=== PATIENT | female | born 1950 | race Caucasian/White ===

== ENCOUNTER → 2019-11-04 11:06 | Outpatient (BNVA) | payer MEDICARE, SELFPAY | PROVIDERS: Family Provider Family Medicine; PCP Family Medicine; Visit Provider Family Medicine | DX: E78.2 Mixed hyperlipidemia (principal); M1A.0790 Idiopathic chronic gout, unspecified ankle and foot, without tophus (tophi); I10 Essential (primary) hypertension; K21.9 Gastro-esophageal reflux disease without esophagitis | CPT/HCPCS: 80053; 80061; 84443; 84550; 85025 ==

== ENCOUNTER → 2019-11-12 09:13 | Outpatient (BNVA) | payer MEDICARE, SELFPAY | PROVIDERS: Family Provider Family Medicine; PCP Family Medicine; Visit Provider Family Medicine | DX: R73.09 Other abnormal glucose (principal) | CPT/HCPCS: 80048 ==

== ENCOUNTER 2020-04-12 10:01 | Emergency (ER) | payer MEDICARE, SELFPAY ==
[2020-04-12 10:04] VITALS: PULSE 74; RESP 18; TEMP 36.3; O2SAT 97; BMI 31.1
--- NOTE | 2020-04-12 10:17 | W.ED.SKABFB ---
HPI - Skin/Abscess/Foreign Bdy General: Chief complaint: Skin/Abscess/Foreign Body Stated complaint: RASH Time Seen by Provider: 04/12/20 10:04 History of Present Illness: HPI narrative: 2-3 weeks ago patient began to break out in a rash. The rash has continued to spread. It is is extremely itchy. complaint: rash Onset (ago): week(s) Location: generalized Severity: severe Quality: pruritic Associated symptoms: Reports no associated symptoms Review of Systems General: Reports: 10 or more systems reviewed and unremarkable except in HPI and below Skin/Breast: Reports: rash PFSH ED PFSH: Medical History GERD (gastroesophageal reflux disease) Gout Hyperlipidemia Hypertension Social History Smoking and tobacco status: never smoked Alcohol intake: never Household members: spouse Marital status: Current gender identity: Female Physical Exam Const: COMMON NORMALS: no acute distress, patient oriented x3, no limitations and alert HENMT: COMMON NORMALS: normocephalic, atraumatic, external ears normal and Normal external nose present HEAD & SCALP: normocephalic and atraumatic FACE & SINUS: normal facial exam NOSE: Normal external nose present EXTERNAL EAR: Yes external ears normal MOUTH: Normal oral and palatal mucosa present Neck/C-Spine: COMMON NORMALS: full ROM, no lymphadenopathy, supple, no meningeal signs and no JVD GENERAL: Yes normal visual inspection Resp: COMMON NORMALS: normal respiratory effort, No retractions, No use of accessory muscles and clear to auscultation bilaterally AUSCULTATION: clear to auscultation bilaterally Cardio: COMMON NORMALS: no JVD, regular rate and regular rhythm RATE: regular rate RHYTHM: regular rhythm GI: COMMON NORMALS: Normal to inspection, nondistended, normoactive bowel sounds present, Soft to palpation, non-tender, No hepatosplenomegaly present and no masses INSPECTION: Yes normal to inspection AUSCULTATION: Yes normoactive bowel sounds PALPATION: Yes Soft to palpation and Yes No hepatosplenomegaly present PERCUSSION: normal to percussion : COMMON NORMALS: Yes no CVA tenderness and Yes normal external appearance BLADDER/KIDNEY EXAM: Yes no CVA tenderness Back/Pelvis: COMMON NORMALS: no CVA tenderness, thoracic and lumbar spine normal to inspection, no thoracic nor lumbar tenderness, thoraco-lumbar ROM normal and straight leg raise negative bilaterally Extremity: COMMON NORMALS: normal to inspection, full ROM, capillary refill normal, no joint enlargement, no clubbing, cyanosis or edema, no calf tenderness and no pedal edema Neuro: COMMON NORMALS: patient oriented x3, moves all extremities, no focal motor deficits and no sensory deficits noted SENSORIUM/ORIENTATION: Yes alert MENINGEAL SIGNS: Yes no meningeal signs Psych: COMMON NORMALS: mental status grossly normal, Normal thought process present, cooperative, normal affect and speech normal SPEECH: Yes normal speech THOUGHT PROCESS: Normal thought process present Skin: COMMON NORMALS: no wounds, turgor normal, no jaundice, no petechiae and no mottling GENERAL SKIN EXAM: turgor normal RASHES: rashes noted (Consistent with generalized scabies infestation) Course Vital Signs: Vital signs: Vital Signs Temperature 97.4 F L 04/12/20 10:04 Pulse Rate 74 04/12/20 10:04 Respiratory Rate 18 04/12/20 10:04 Pulse Oximetry 97 04/12/20 10:04 Discharge Plan Discharge Patient Disposition: Home, Self-Care Clinical Impression: Scabies Condition: Stable Prescriptions: New Elimite 5 % cream 1 applic TOPICAL Q14D Qty: 60 RF: 0 No Action famotidine 20 mg tablet 20 mg PO BID RF: 0 metoprolol tartrate 25 mg tablet 25 mg PO BID RF: 0 spironolactone 25 mg tablet 25 mg PO DAILY RF: 0 simvastatin 20 mg tablet 20 mg PO DAILY RF: 0 allopurinol 100 mg tablet 100 mg PO DAILY Qty: 90 RF: 0 cetirizine [Zyrtec] 10 mg tablet 10 mg PO DAILY PRN (Reason: allergy symptoms) Qty: 30 RF: 2 triamcinolone acetonide 0.1 % cream 1 applic TOPICAL BID Qty: 80 RF: 0 losartan 100 mg tablet 100 mg PO DAILY Qty: 90 RF: 0 Discharge Orders: Discharge Order (Routine); Ordered 04/12/20 Ordered By: Michael Watson Referrals: Mat Correia MD [Primary Care Provider] - Coding Level of Care Code ED Aged Or Disabled Carer for Chg Fwd Exam Comprehensive
[2020-04-12 10:25] VITALS: BP 123/84; PULSE 69; RESP 18; TEMP 36.9; O2SAT 97
[2020-04-12 10:53] VITALS: BP 123/84; PULSE 74; RESP 16; O2SAT 97
== END 2020-04-12 10:56 | disposition home or self-care (01) ==
LOC: ER 10:41
PROVIDERS: Emergency Provider Family Medicine; Family Provider Family Medicine; PCP Family Medicine
DX: B86 Scabies (principal); E78.5 Hyperlipidemia, unspecified; I10 Essential (primary) hypertension
CPT/HCPCS: 12345; 99281

== ENCOUNTER → 2020-05-04 11:47 | Outpatient (BNVA) | payer MEDICARE, SELFPAY | PROVIDERS: Family Provider Family Medicine; PCP Family Medicine; Visit Provider Family Medicine | DX: E78.5 Hyperlipidemia, unspecified (principal); I10 Essential (primary) hypertension; M10.9 Gout, unspecified; R21 Rash and other nonspecific skin eruption; K21.9 Gastro-esophageal reflux disease without esophagitis | CPT/HCPCS: 80053; 80061; 84443; 85025 ==

== ENCOUNTER → 2020-09-01 09:56 | Outpatient (BNVA) | payer MEDICARE, SELFPAY | PROVIDERS: Family Provider Family Medicine; PCP Family Medicine; Visit Provider Family Medicine | DX: M10.9 Gout, unspecified (principal); I10 Essential (primary) hypertension; E78.5 Hyperlipidemia, unspecified | CPT/HCPCS: 80053; 80061; 85025 ==

== ENCOUNTER 2020-09-11 10:49 | Outpatient (CLI) | payer MEDICARE, SELFPAY ==
--- NOTE | 2020-09-11 11:00 | MM_ITS ---
WS: [id number] BILATERAL SCREENING DIGITAL MAMMOGRAM WITH CAD HISTORY: Z12.31 - Encounter for screening mammogram for malignant neoplasm of breast COMPARISON: 03/23/2018 and 03/15/2017 Bilateral CC and MLO views submitted. Computer aided detection analyzed. Breast composition: There are scattered areas of fibroglandular density. No suspicious masses, microc alcifications or architectural distortion. MM/[place] [id number] IMPRESSION: BI-RADS: 1-Negative FOLLOW UP: 1 Year Follow-up
== END 2020-09-11 10:50 | disposition home or self-care (01) ==
LOC: RADSHAW 10:53
PROVIDERS: PCP Family Medicine; Visit Provider Family Medicine
DX: Z12.31 Encounter for screening mammogram for malignant neoplasm of breast (principal)
CPT/HCPCS: 77067

== ENCOUNTER 2020-09-25 10:02 | Emergency (ER) | payer MEDICARE, SELFPAY ==
[2020-09-25 10:05] VITALS: BP 166/100; PULSE 76; RESP 18; TEMP 36.1; O2SAT 98; BMI 29.2
--- NOTE | 2020-09-25 10:08 | XRR_ITS ---
PROCEDURE INFORMATION: Exam: XR Left Humerus Exam date and time: 09/25/2020 10:15 AM Age: 70 years old Clinical indication: Injury or trauma; Fall; Blunt trauma (contusions or hematomas); Arm, upper; Left; Additional info: Left arm pain S/P fall TECHNIQUE: Imaging protocol: XR Left humerus Views: Internal/neutral rotation AP views of the left humerus are submitted, 2 views. COMPARISON: No relevant prior studies available. FINDINGS: Bones/joints: Anterior-inferior subcoracoid dislocation of the humeral head. No acute bony abnormality identified. Soft tissues: Normal. XR/[place] [id number] IMPRESSION: 1. Shoulder dislocation. 2. No acute bony fracture identified as visual.
[2020-09-25 10:11] VITALS: BP 166/100; PULSE 71; RESP 18; O2SAT 98
--- NOTE | 2020-09-25 10:11 | ED_ITS ---
Documented by User: SREEDHAR Meza 09/25/20 14:08 HPI - Extremity Problem General: Chief complaint: Extremity Injury, Upper Stated complaint: left shoulder injury Time Seen by Provider: 09/25/20 10:04 Source: patient and family (spouse) Mode of arrival: ambulatory Limitations: no limitations History of Present Illness: HPI Narrative: 70-year-old female patient presents to the emergency department due to left upper arm pain. She reports was outside caring for the dog, the dog jerked her down to the ground. She reports pain to the left upper arm, below the shoulder. States did not hit her head, denies loss of consciousness. She denies further injuries MD Complaint: extremity pain Onset (ago): hour(s) (1) Pain Consistency: constant Location: left and upper extremity Severity scale (1-10): 8 Quality: aching and dull Radiation: none Relieving factors: immobilization and rest Exacerbating factors: exertion Associated symptoms: Deny chest pain, fever(s) or rash Review of Systems General: Reports: 10 or more systems reviewed and unremarkable except in HPI and below Const: Denies: fever(s), chills or diaphoresis Eyes: Denies: blurry vision or eye redness ENMT: Denies: throat pain, dental pain or disequilibrium Card: Denies: chest pain, palpitations or irregular heart rhythm Resp: Denies: dyspnea, productive cough, non-productive cough or wheezing GI: Denies: abdominal pain, nausea or vomiting : Denies: difficulty voiding or dysuria Musc: Reports: limited range of motion (left upper arm); Denies: neck pain, back pain, joint swelling or joint stiffness Skin/Breast: Denies: rash or pruritus Neuro: Denies: headache(s), weakness in extremities or behavioral changes Psych: Denies: anxiety or depression Duong/Lymph: Denies: easy bruising PFSH ED PFSH: Medical History (Updated 09/25/20 @ 11:41 by SREEDHAR Meza) GERD (gastroesophageal reflux disease) Gout Hyperlipidemia Hypertension Social History Smoking and tobacco status: never smoked Alcohol intake: never Household members: spouse Marital status: Current gender identity: Female Physical Exam Const: COMMON NORMALS: patient oriented x3, no limitations, healthy appearing and alert GENERAL APPEARANCE: cooperative, well kempt, well developed and well hydrated; not comfortable, not anxious and not ill appearing NUTRITIONAL APPEARANCE: thin ORIENTATION/CONSCIOUSNESS: Yes awake, Yes oriented to person, Yes oriented to place and Yes oriented to time; not confused HENMT: COMMON NORMALS: normocephalic, atraumatic, Normal external nose present and moist oral mucous membranes HEAD & SCALP: normal to inspection, normocephalic and atraumatic FACE & SINUS: normal facial exam and face symmetric NOSE: Normal external nose present Eye: COMMON NORMALS: Equal, round and reactive pupils present, EOMs intact bilaterally and conjunctivae normal GENERAL EYE: appearance normal, both eyes and all related structures CONJUNCTIVA: Yes conjunctivae normal PUPIL: Yes Equal, round and reactive pupils present Neck/C-Spine: COMMON NORMALS: full ROM and no lymphadenopathy GENERAL: Yes normal visual inspection and Yes trachea midline CERVICAL SPINE: Yes cervical ROM normal, No cervical ROM abnormal, No pain with cervical ROM, No Cervical spine tenderness, No Paracervical muscle tenderness, No Paracervical spasm and No Trapezius muscle tenderness Lymph: LYMPHATIC: no lymphadenopathy noted Chest: COMMONS NORMALS: normal inspection of the chest and normal palpation of entire chest wall CHEST: Yes Symmetrical chest wall rise and No localized rib tenderness with anteroposterior compression Breast/axilla inspection: No no chest deformity, asymmetry, normal contours, no nodules, masses, tenderness Resp: COMMON NORMALS: normal respiratory effort, No use of accessory muscles and clear to auscultation bilaterally EFFORT & INSPECTION: Yes able to speak in complete sentences AUSCULTATION: clear to auscultation bilaterally Cardio: COMMON NORMALS: regular rate, regular rhythm, S1 normal heart sound present, S2 normal heart sound present and Peripheral pulses 2+ throughout RATE: regular rate RHYTHM: regular rhythm HEART SOUNDS: S1 normal heart sound present and S2 normal heart sound present PERIPHERAL PULSES: Peripheral pulses 2+ throughout GI: COMMON NORMALS: Normal to inspection, nondistended, normoactive bowel sounds present, Soft to palpation and non-tender INSPECTION: Yes normal to inspection PALPATION: Yes Soft to palpation : COMMON NORMALS: Yes no CVA tenderness BLADDER/KIDNEY EXAM: Yes no CVA tenderness Back/Pelvis: COMMON NORMALS: no CVA tenderness, thoracic and lumbar spine normal to inspection and no thoracic nor lumbar tenderness THORACIC SPINE/UPPER BACK: No thoracic spinal tenderness, No paraspinal muscle tenderness and No paraspinal muscle spasm LUMBAR SPINE/LOWER BACK: No lumbar spinal tenderness, No paraspinal muscle tenderness and No paraspinal muscle spasm PELVIS: Yes buttocks normal Extremity: COMMON NORMALS: normal to inspection and capillary refill normal GENERAL: Yes normal exam except as noted LEFT UPPER EXTREMITY: Yes upper arm (normal) Left upper arm: Yes inspection, Yes palpation (pain distal shoulder joint, deltoid area) and Yes neurovascular exam (distally intact) Neuro: COMMON NORMALS: patient oriented x3 and no focal motor deficits SENSORIUM/ORIENTATION: Yes alert, Yes oriented to person, Yes oriented to place and Yes oriented to time Psych: COMMON NORMALS: mental status grossly normal, Normal thought process pr esent and cooperative APPEARANCE: Yes well kempt ACTIVITY/MOTOR BEHAVIOR: Yes appropriate eye contact THOUGHT PROCESS: Normal thought process present Skin: COMMON NORMALS: no rashes or lesions noted and turgor normal GENERAL SKIN EXAM: no rashes or lesions noted and turgor normal Course ED course: 70-year-old female patient presents to the emergency department with left shoulder dislocation status post fall. Dr. Burgos was able to reduce anterior dislocation, postreduction x-ray revealed good placement, patient was placed in left arm sling. She tolerated the procedure well. surgical services manager will be contacted for referral to orthopedic specialty. Questions were answered, patient advised to limit range of motion of the left upper extremity until follow-up with orthopedic specialty. Verbalized understanding. Vital Signs: Vital signs: Vital Signs Temperature 97.0 F L 09/25/20 10:05 Pulse Rate 81 09/25/20 12:28 Respiratory Rate 18 09/25/20 12:28 Blood Pressure 131/85 09/25/20 12:28 Pulse Oximetry 98 09/25/20 12:28 Discharge Plan Discharge Patient Disposition: Home Clinical Impression: Fall Qualifiers: Encounter type: initial encounter Qualified Code(s): W19.XXXA - Unspecified fall, initial encounter Anterior shoulder dislocation Qualifiers: Encounter type: initial encounter Laterality: left Qualified Code(s): S43.015A - Anterior dislocation of left humerus, initial encounter Condition: Stable Prescriptions: New hydrocodone-acetaminophen 5-325 mg tablet 1 tab PO Q4H PRN (Reason: pain) Qty: 10 RF: 0 No Action cetirizine [Zyrtec] 10 mg tablet 10 mg PO DAILY PRN (Reason: allergy symptoms) Qty: 30 RF: 2 Celebrex 200 mg capsule 200 mg PO BID@0700,1700 RF: 0 allopurinol 100 mg tablet 100 mg PO DAILY@1700 RF: 0 spironolactone 25 mg tablet 25 mg PO DAILY@0700 RF: 0 famotidine 20 mg tablet 20 mg PO BID@0700,1700 RF: 0 simvastatin 20 mg tablet 20 mg PO DAILY@1700 RF: 0 losartan 100 mg tablet 100 mg PO DAILY@0700 RF: 0 metoprolol tartrate 25 mg tablet 25 mg PO BID@0700,1700 RF: 0 Discharge Orders: Discharge ED (Routine); Ordered 09/25/20 Ordered By: Keisha Schroeder Referrals: Augustina Contreras MD [Primary Care Provider] - Discharge Diet: Usual diet Discharge Activity: Limit activity as instructed Patient Instructions: Shoulder Dislocation (ED), Rotator Cuff Injury (ED) Activity Restrictions/Additional Instructions: surgical services manager will be contacting you with an appointment for referral to orthopedic specialty Return to the emergency department if you develop increased shoulder pain, difficulty breathing or other concerning symptoms such as inability to feel your left arm Keep left arm in shoulder sling, avoid over the head range of motion until follow-up Take hydrocodone, 1 every 4 hours as needed for pain, medication can be addictive, may also use Tylenol, 1 g every 8 hours as needed for pain if pain is mild. Coding Level of Care Code ED Rotary Swaging Machine Operator for Chg Fwd Exam Comprehensive Documented by User: Laura Burgos MD 09/27/20 07:39 HPI - Extremity Problem General: Chief complaint: Extremity Injury, Upper Stated complaint: left shoulder injury Time Seen by Provider: 09/25/20 10:04 [facility] ED PFSH: Medical History (Updated 09/25/20 @ 11:41 by SREEDHAR Meza) GERD (gastroesophageal reflux disease) Gout Hyperlipidemia Hypertension Social History (Reviewed 09/25/20 @ 10:15 by Keisha Schroeder [facility]) Smoking and tobacco status: never smoked Alcohol intake: never Household members: spouse Marital status: Current gender identity: Female Procedures Orthopedic Joint Reduction Joint #1: Side: left Joint Reduction Location: shoulder Analgesia: other (anxiolysis, analgesia) Shoulder Technique Used (if applicable): other (arias) Post-reduction neuro exam: intact Post-reduction vascular: intact Post Reduction X-Ray Obtained: Yes Post Reduction X-Ray Results: reduced Splint Applied: Yes Patient Tolerated Procedure: well Course Vital Signs: Vital signs: Vital Signs Temperature 97.0 F L 09/25/20 10:05 Pulse Rate 81 09/25/20 12:28 Respiratory Rate 18 09/25/20 12:28 Blood Pressure 131/85 09/25/20 12:28 Pulse Oximetry 98 09/25/20 12:28 Discharge Plan Discharge Patient Disposition: Home Clinical Impression: Fall Qualifiers: Encounter type: initial encounter Qualified Code(s): W19.XXXA - Unspecified fall, initial encounter Anterior shoulder dislocation Qualifiers: Encounter type: initial encounter Laterality: left Qualified Code(s): S43.015A - Anterior dislocation of left humerus, initial encounter Condition: Stable Prescriptions: New hydrocodone-acetaminophen 5-325 mg tablet 1 tab PO Q4H PRN (Reason: pain) Qty: 10 RF: 0 No Action cetirizine [Zyrtec] 10 mg tablet 10 mg PO DAILY PRN (Reason: allergy symptoms) Qty: 30 RF: 2 Celebrex 200 mg capsule 200 mg PO BID@0700,1700 RF: 0 allopurinol 100 mg tablet 100 mg PO DAILY@1700 RF: 0 spironolactone 25 mg tablet 25 mg PO DAILY@0700 RF: 0 famotidine 20 mg tablet 20 mg PO BID@0700,1700 RF: 0 simvastatin 20 mg tablet 20 mg PO DAILY@1700 RF: 0 losartan 100 mg tablet 100 mg PO DAILY@0700 RF: 0 metoprolol tartrate 25 mg tablet 25 mg PO BID@0700,1700 RF: 0 Discharge Orders: Discharge ED (Routine); Ordered 09/25/20 Ordered By: Keisha Schroeder Referrals: Augustina Contreras MD [Primary Care Provider] - Discharge Diet: Usual diet Discharge Activity: Limit activity as instructed Patient Instructions: Shoulder Dislocation (ED), Rotator Cuff Injury (ED) Activity Restrictions/Additional Instructions: surgical services manager will be contacting you with an appointment for referral to orthopedic specialty Return to the emergency department if you develop increased shoulder pain, difficulty breathing or other concerning symptoms such as inability to feel your left arm Keep left arm in shoulder sling, avoid over the head range of motion until follow-up Take hydrocodone, 1 every 4 hours as needed for pain, medication can be addictive, may also use Tylenol, 1 g every 8 hours as needed for pain if pain is mild. Coding Level of Care Code ED Rotary Swaging Machine Operator for Cedricg Fwd Exam Comprehensive
[2020-09-25] MEDS: HYDROcodone-acetaminophen 5-325 mg Tablet 1 TAB PO (10:21)
--- NOTE | 2020-09-25 10:33 | XRR_ITS ---
PROCEDURE INFORMATION: Exam: XR Left Shoulder Exam date and time: 09/25/2020 11:01 AM Age: 70 years old Clinical indication: Injury or trauma; Fall; Blunt trauma (contusions or hematomas); Arm, upper; Left; Additional info: Shoulder dislocation TECHNIQUE: Imaging protocol: XR Left shoulder. Views: AP internal and external rotation views, and a scapular Y view of the left shoulder. COMPARISON: No relevant prior studies available. FINDINGS: Bones/joints: Anterior-inferior subcoracoid dislocation of the humeral head. No acute bony fracture identified. Soft tissues: Normal. XR/XR shoulder LT min 2V* [id number] IMPRESSION: 1. Anterior-inferior subcoracoid dislocation of the humeral head. 2. No acute bony fracture identified.
[2020-09-25] MEDS: ondansetron 2 mg/ML SDV 2 mL 4 MG IVP (10:46)
[2020-09-25 10:47] VITALS: RESP 18; O2SAT 99
[2020-09-25] MEDS: fentaNYL 50 mcg/mL INJ 2mL 75 MCG IVP (10:47)
--- NOTE | 2020-09-25 11:22 | XRR_ITS ---
PROCEDURE INFORMATION: Exam: XR Left Shoulder Exam date and time: 09/25/2020 11:37 AM Age: 70 years old Clinical indication: Injury or trauma; Fall; Work related; Blunt trauma (contusions or hematomas); Arm, upper; Left; Additional info: Post reduction x-ray - will call when done TECHNIQUE: Imaging protocol: XR Left shoulder. Views: Single AP internal rotation view. COMPARISON: CR XR shoulder LT min 2V* [id number] 09/25/2020 10:45 AM FINDINGS: Bones/joints: Improved alignment post closed reduction with mild inferior subluxation of the humeral head, widening the subacromial space (2.0 cm). No acute bony fracture identified. Lungs: Mild left lateral basilar subsegmental atelectasis. Soft tissues: Normal. XR/XR shoulder LT 1V [id number] IMPRESSION: 1. Improved alignment post closed reduction with residual inferior humeral head subluxation. A scapular Y or trans axillary view may add additional useful information. 2. No acute bony fracture identified. 3. Mild left lateral basilar subsegmental atelectasis.
[2020-09-25] MEDS: LORazepam 2 mg/mL INJ 1 mL 0.5 MG IVP (12:07)
[2020-09-25 12:28] VITALS: BP 131/85; PULSE 81; RESP 18; O2SAT 98
== END 2020-09-25 12:35 | disposition home or self-care (01) ==
PROVIDERS: Emergency Provider Nurse Practitioner Family; PCP Family Medicine
DX: S43.015A Anterior dislocation of left humerus, initial encounter (principal); I10 Essential (primary) hypertension; E78.5 Hyperlipidemia, unspecified; X50.9XXA Other and unspecified overexertion or strenuous movements or postures, initial encounter
CPT/HCPCS: 12345; 23650; 73020; 73030; 73060; 96374; 96375; 99283; J2060; J2405; J3010

== ENCOUNTER → 2020-10-07 09:59 | Outpatient (BNVA) | payer MEDICARE, SELFPAY | PROVIDERS: PCP Family Medicine; Referring Provider Family Medicine; Visit Provider Orthopaedic Surgery | DX: S43.016A Anterior dislocation of unspecified humerus, initial encounter (principal); X58.XXXA Exposure to other specified factors, initial encounter | CPT/HCPCS: 73030 ==

== ENCOUNTER 2020-10-14 06:00 | Outpatient (RCR) | payer MEDICARE, SELFPAY | END 2020-11-01 23:59 | disposition home or self-care (01) | LOC: TPT 06:00 | PROVIDERS: PCP Family Medicine; Referring Provider Orthopaedic Surgery; Visit Provider Orthopaedic Surgery | DX: S43.005D Unspecified dislocation of left shoulder joint, subsequent encounter (principal); X58.XXXD Exposure to other specified factors, subsequent encounter | CPT/HCPCS: 97110; 97140; 97161; G0283 ==

== ENCOUNTER 2020-11-02 06:00 | Outpatient (RCR) | payer MEDICARE, SELFPAY | END 2020-11-29 23:59 | disposition home or self-care (01) | LOC: TPT 06:00 | PROVIDERS: PCP Family Medicine; Referring Provider Orthopaedic Surgery; Visit Provider Orthopaedic Surgery | DX: S43.005D Unspecified dislocation of left shoulder joint, subsequent encounter (principal); X58.XXXD Exposure to other specified factors, subsequent encounter | CPT/HCPCS: 97110; 97140; G0283 ==

== ENCOUNTER → 2021-02-03 16:21 | Outpatient (BNVA) | payer MEDICARE, SELFPAY | PROVIDERS: PCP Family Medicine; Visit Provider Family Medicine | DX: I10 Essential (primary) hypertension (principal); M10.9 Gout, unspecified; E78.2 Mixed hyperlipidemia; K21.9 Gastro-esophageal reflux disease without esophagitis | CPT/HCPCS: 80053; 80061; 84443; 84550; 85025 ==

== ENCOUNTER → 2021-08-09 12:14 | Outpatient (BNVA) | payer MEDICARE, SELFPAY | PROVIDERS: PCP Family Medicine; Visit Provider Family Medicine | DX: I10 Essential (primary) hypertension (principal); M10.9 Gout, unspecified; E78.2 Mixed hyperlipidemia; K21.9 Gastro-esophageal reflux disease without esophagitis | CPT/HCPCS: 80053; 80061; 84443; 84550; 85025 ==

== ENCOUNTER → 2021-09-30 13:26 | Outpatient (BNVA) | payer MEDICARE, SELFPAY | PROVIDERS: PCP Family Medicine; Visit Provider Nurse Practitioner Family | DX: Z20.822 Contact with and (suspected) exposure to COVID-19 (principal) | CPT/HCPCS: 87635 ==

== ENCOUNTER → 2022-02-07 11:01 | Outpatient (BNVA) | payer MEDICARE, SELFPAY | PROVIDERS: PCP Family Medicine; Visit Provider Family Medicine | DX: I10 Essential (primary) hypertension (principal); E78.5 Hyperlipidemia, unspecified; M10.9 Gout, unspecified; E78.2 Mixed hyperlipidemia; K21.9 Gastro-esophageal reflux disease without esophagitis | CPT/HCPCS: 80053; 80061; 84550; 85025 ==

== ENCOUNTER → 2022-03-24 09:02 | Outpatient (BNVA) | payer MEDICARE, SELFPAY | PROVIDERS: PCP Family Medicine; Visit Provider Family Medicine | DX: R79.89 Other specified abnormal findings of blood chemistry (principal) | CPT/HCPCS: 80076 ==

== ENCOUNTER → 2022-08-11 09:43 | Outpatient (BNVA) | payer MEDICARE, SELFPAY | PROVIDERS: PCP Family Medicine; Visit Provider Family Medicine | DX: I10 Essential (primary) hypertension (principal); E78.2 Mixed hyperlipidemia; K21.9 Gastro-esophageal reflux disease without esophagitis; M10.9 Gout, unspecified | CPT/HCPCS: 80053; 80061; 84443; 84550; 85025 ==

== ENCOUNTER 2022-09-14 11:35 | Outpatient (CLI) | payer MEDICARE, SELFPAY ==
--- NOTE | 2022-09-14 11:41 | MM_ITS ---
WS: [id number] BILATERAL SCREENING DIGITAL TOMOSYNTHESIS MAMMOGRAM WITH CAD HISTORY: Screening. COMPARISON: 09/11/2020 and 03/21/2018 Bilateral CC and MLO views with tomosynthesis and synthetic mammography submitted. Computer aided det ection analyzed. Breast composition: The breasts are heterogeneously dense, which may obscure small masses. No suspici ous masses, microcalcifications or architectural distortion. MM/[place] [id number] IMPRESSION: BI-RADS: 2-Benign FOLLOW UP: 1 Year Follow-up
== END 2022-09-14 11:36 | disposition home or self-care (01) ==
LOC: RAD 11:36
PROVIDERS: PCP Family Medicine; Visit Provider Family Medicine
DX: Z12.31 Encounter for screening mammogram for malignant neoplasm of breast (principal)
CPT/HCPCS: 77063; 77067

== ENCOUNTER → 2022-11-10 10:33 | Outpatient (BNVA) | payer MEDICARE, SELFPAY | PROVIDERS: PCP Family Medicine; Visit Provider Family Medicine | DX: E87.1 Hypo-osmolality and hyponatremia (principal) | CPT/HCPCS: 80048 ==

== ENCOUNTER → 2023-02-14 09:33 | Outpatient (BNVA) | payer MEDICARE, SELFPAY | PROVIDERS: PCP Family Medicine; Visit Provider Family Medicine | DX: Z12.31 Encounter for screening mammogram for malignant neoplasm of breast (principal); E78.2 Mixed hyperlipidemia; I10 Essential (primary) hypertension; K21.9 Gastro-esophageal reflux disease without esophagitis; M10.9 Gout, unspecified; E78.5 Hyperlipidemia, unspecified | CPT/HCPCS: 80053; 80061; 84443; 84550; 85025 ==

== ENCOUNTER → 2023-08-15 10:31 | Outpatient (BNVA) | payer MEDICARE, SELFPAY | PROVIDERS: PCP Family Medicine; Visit Provider Family Medicine | DX: I10 Essential (primary) hypertension (principal); K21.9 Gastro-esophageal reflux disease without esophagitis; M10.9 Gout, unspecified; E78.2 Mixed hyperlipidemia | CPT/HCPCS: 80053; 80061; 84443; 84550; 85025 ==

== ENCOUNTER → 2024-02-13 10:59 | Outpatient (BNVA) | payer MEDICARE, SELFPAY | PROVIDERS: PCP Family Medicine; Visit Provider Family Medicine | DX: E78.2 Mixed hyperlipidemia (principal); I10 Essential (primary) hypertension | CPT/HCPCS: 80053; 80061; 84443; 85025 ==

== ENCOUNTER 2024-02-28 09:03 | Outpatient (CLI) | payer MEDICARE, SELFPAY ==
--- NOTE | 2024-02-28 09:00 | MM_ITS ---
WS: [id number] SCREENING DIGITAL TOMOSYNTHESIS MAMMOGRAM WITH CAD HISTORY: Z12.39 - Encounter for other screening for malignant neop... COMPARISON: 09/14/2022, 09/11/2020 Bilateral CC and MLO with tomosynthesis views submitted. Synthetic mammography reviewed. Computer aid ed detection analyzed. Breast composition: There are scattered areas of fibroglandular density. No suspicious masses, microc alcifications or architectural distortion. MM/[place] [id number] IMPRESSION: BI-RADS: 1-Negative FOLLOW UP: 1 Year Follow-up
== END 2024-02-28 09:04 | disposition home or self-care (01) ==
LOC: MOBLMAM 09:05
PROVIDERS: PCP Family Medicine; Visit Provider Family Medicine
DX: Z12.31 Encounter for screening mammogram for malignant neoplasm of breast (principal); R92.323 Mammographic fibroglandular density, bilateral breasts
CPT/HCPCS: 77063; 77067

== ENCOUNTER → 2024-08-13 12:03 | Outpatient (BNVA) | payer MEDICARE, SELFPAY | PROVIDERS: PCP Family Medicine; Visit Provider Nurse Practitioner Family | DX: M10.9 Gout, unspecified; I10 Essential (primary) hypertension | CPT/HCPCS: 80053; 80061; 84443; 84550; 85025 ==

== ENCOUNTER 2024-08-23 14:30 | Outpatient (CLI) | payer MEDICARE, SELFPAY ==
--- NOTE | 2024-08-23 14:30 | XR_ITS ---
WS: [id number] DEXA (DUAL ENERGY X-RAY ABSORPTIOMETRY) Bone mineral density was performed using a [employer] machine. HISTORY: Z78.0 - Asymptomatic menopausal state COMPARISON: 06/18/2018 Lumbar spine BMD (L1-L4): 1.275 g/cm2 T score: 0.8 Z score: 2.2 Total hip BMD: Left: 1.155 g/cm2. T score: 1.2 Z score: 2.7 Right: 1.126 g/cm2. T score: 0.9 Z score: 2.5 10 year probability of a major osteoporotic fracture is 8.8%. Compared to the prior study from 06/18/2018. Lumbar spine bone mineral density has increased by 4.2%. Bilateral hips bone mineral density has decreased by 0.8%. XR/XR DEXA axial skeleton* [id number] IMPRESSION: NORMAL BONE MINERAL DENSITY based upon the WHO classification for females. Significant increase in bone mineral density within the lumbar spine since the prior study.
== END 2024-08-23 14:31 | disposition home or self-care (01) ==
PROVIDERS: PCP Family Medicine; Visit Provider Nurse Practitioner Family
DX: Z13.820 Encounter for screening for osteoporosis (principal); Z78.0 Asymptomatic menopausal state
CPT/HCPCS: 77080

== ENCOUNTER → 2024-09-03 13:14 | Outpatient (BNVA) | payer MEDICARE, SELFPAY | PROVIDERS: PCP Nurse Practitioner Family; Visit Provider Nurse Practitioner Family | DX: L30.9 Dermatitis, unspecified (principal) | CPT/HCPCS: 81003 ==

== ENCOUNTER 2024-09-09 06:47 | Outpatient (CLI) | payer MEDICARE, SELFPAY ==
--- NOTE | 2024-09-09 07:00 | US_ITS ---
WS: [id number] RIGHT UPPER QUADRANT ULTRASOUND HISTORY: Elevated LFTs. COMPARISON: Renal ultrasound 02/17/2014 Liver: 14.5 cm in length. Normal size. Mild coarse echotexture throughout the liver. Loss of the norm al portal triad configurations. No mass. Portal Vein: Normal hepatopetal flow with monophasic waveform. Gallbladder: Status post cholecystectomy. CBD: 0.8 cm Pancreas: Head and tail are partially visualized. The body is normal. Right kidney: 8.0 cm in length. Mild atrophy RIGHT kidney with no obstruction. Kidney was normal size on the study from 2013. Aorta and IVC: Unremarkable abdominal aorta and IVC. No ascites. US/US liver [id number] IMPRESSION: 1. Prior cholecystectomy. 2. Mild RIGHT renal atrophy. Since 2013 RIGHT kidney has decreased in overall length from 9.9 to 8.0 cm. No obstruction. 3. Mild hepatic steatosis.
== END 2024-09-09 06:48 | disposition home or self-care (01) ==
PROVIDERS: PCP Nurse Practitioner Family; Visit Provider Nurse Practitioner Family
DX: R79.89 Other specified abnormal findings of blood chemistry (principal); Z90.49 Acquired absence of other specified parts of digestive tract
CPT/HCPCS: 76705

== ENCOUNTER 2024-10-04 10:37 | Outpatient (CLI) | payer MEDICARE, SELFPAY ==
--- NOTE | 2024-10-04 10:45 | US_ITS ---
WS: [id number] RENAL ULTRASOUND HISTORY: N26.1 - Atrophy of kidney (terminal) COMPARISON: 02/17/2014 TECHNIQUE: 2-D and color Doppler imaging of the kidney submitted. Right kidney: 9.1 cm x 3.7 cm x 3.5 cm. Cortex: 0.8 cm Normal echogenicity with no hydronephrosis or mass. Left kidney: 10.2 cm x 4.3 cm x 3.5 cm. Cortex: 1.4 cm Normal echogenicity with no hydronephrosis or mass. Aorta: Normal. Urinary Bladder: Normal distention. US/US renal BI* [id number] IMPRESSION: 1. Low normal size RIGHT kidney with diffuse cortical thinning. No obstruction . Similar findings noted on the prior ultrasound of 02/17/2014. 2. Normal LEFT kidney.
== END 2024-10-04 10:38 | disposition home or self-care (01) ==
LOC: RAD 10:38
PROVIDERS: PCP Nurse Practitioner Family; Visit Provider Nurse Practitioner Family
DX: N26.1 Atrophy of kidney (terminal) (principal)
CPT/HCPCS: 76770

== ENCOUNTER → 2024-10-28 08:18 | Outpatient (BNVA) | payer MEDICARE, SELFPAY | PROVIDERS: PCP Nurse Practitioner Family; Referring Provider Nurse Practitioner Family; Visit Provider Nurse Practitioner Family | DX: L30.9 Dermatitis, unspecified (principal); L73.8 Other specified follicular disorders; D22.39 Melanocytic nevi of other parts of face; Q82.5 Congenital non-neoplastic nevus | CPT/HCPCS: 11104; 99204 ==

== ENCOUNTER → 2024-11-06 09:10 | Outpatient (BNVA) | payer MEDICARE, SELFPAY | PROVIDERS: PCP Nurse Practitioner Family; Visit Provider Nurse Practitioner Family | DX: L23.9 Allergic contact dermatitis, unspecified cause (principal) | CPT/HCPCS: 99214 ==

== ENCOUNTER → 2024-12-04 08:55 | Outpatient (BNVA) | payer MEDICARE, SELFPAY | PROVIDERS: PCP Nurse Practitioner Family; Visit Provider Nurse Practitioner Family | DX: L23.9 Allergic contact dermatitis, unspecified cause (principal); L30.4 Erythema intertrigo | CPT/HCPCS: 99214 ==

== ENCOUNTER → 2024-12-31 10:12 | Outpatient (BNVA) | payer MEDICARE, SELFPAY | PROVIDERS: PCP Nurse Practitioner Family; Visit Provider Nurse Practitioner Family | DX: L23.9 Allergic contact dermatitis, unspecified cause (principal) | CPT/HCPCS: 99214 ==

== ENCOUNTER → 2025-01-20 11:35 | Outpatient (BNVA) | payer MEDICARE, SELFPAY | PROVIDERS: PCP Nurse Practitioner Family; Visit Provider Dermatology | DX: L08.1 Erythrasma (principal); L23.9 Allergic contact dermatitis, unspecified cause | CPT/HCPCS: 95044; 99213 ==

== ENCOUNTER → 2025-01-22 11:32 | Outpatient (BNVA) | payer MEDICARE, SELFPAY | PROVIDERS: PCP Nurse Practitioner Family; Visit Provider Dermatology | DX: L23.9 Allergic contact dermatitis, unspecified cause (principal) | CPT/HCPCS: 99213 ==

== ENCOUNTER → 2025-01-27 11:34 | Outpatient (BNVA) | payer MEDICARE, SELFPAY | PROVIDERS: PCP Nurse Practitioner Family; Visit Provider Dermatology | DX: L23.9 Allergic contact dermatitis, unspecified cause (principal) | CPT/HCPCS: 99213 ==

== ENCOUNTER → 2025-02-11 10:26 | Outpatient (BNVA) | payer MEDICARE, SELFPAY | PROVIDERS: PCP Nurse Practitioner Family; Visit Provider Nurse Practitioner Family | DX: I10 Essential (primary) hypertension (principal); L30.9 Dermatitis, unspecified; M10.9 Gout, unspecified; E78.2 Mixed hyperlipidemia | CPT/HCPCS: 80053; 80061; 84443; 84550; 85025; 85651; 86038; 86140 ==

== ENCOUNTER → 2025-02-20 14:13 | Outpatient (BNVA) | payer MEDICARE, SELFPAY | PROVIDERS: PCP Nurse Practitioner Family; Visit Provider Dermatology | DX: L30.9 Dermatitis, unspecified (principal) | CPT/HCPCS: 11104 ==

== ENCOUNTER → 2025-04-15 12:07 | Outpatient (BNVA) | payer MEDICARE, SELFPAY | PROVIDERS: PCP Nurse Practitioner Family; Visit Provider Dermatology | DX: L40.8 Other psoriasis (principal) | CPT/HCPCS: 99214 ==

== ENCOUNTER → 2025-07-07 09:37 | Outpatient (BNVA) | payer MEDICARE, SELFPAY | PROVIDERS: PCP Nurse Practitioner Family; Visit Provider Dermatology | DX: L40.8 Other psoriasis (principal); L23.9 Allergic contact dermatitis, unspecified cause | CPT/HCPCS: 99214 ==

== ENCOUNTER → 2025-08-12 11:11 | Outpatient (BNVA) | payer MEDICARE, SELFPAY | PROVIDERS: PCP Nurse Practitioner Family; Visit Provider Nurse Practitioner Family | DX: I10 Essential (primary) hypertension (principal); E78.2 Mixed hyperlipidemia; M10.9 Gout, unspecified | CPT/HCPCS: 80053; 80061; 84443; 84550; 85025 ==

== ENCOUNTER → 2025-09-17 09:16 | Outpatient (BNVA) | payer MEDICARE, SELFPAY | PROVIDERS: PCP Nurse Practitioner Family; Visit Provider Nurse Practitioner Family | DX: E83.52 Hypercalcemia (principal) | CPT/HCPCS: 80053; 82310; 83970 ==